=== PATIENT | female | born 1985 | race Caucasian/White ===

== ENCOUNTER → 2016-10-19 | Outpatient (CLI) | payer OTHER ==
--- NOTE | 2016-10-22 07:52 | XR ---
EXAMINATION TYPE: XR shoulder complete RT DATE OF EXAM: 10/19/2016 11:52 AM CLINICAL HISTORY: Right shoulder arm and neck pain. TECHNIQUE: Three views of the right shoulder are obtained. COMPARISON: None. FINDINGS: There is no acute fracture/dislocation evident in the right shoulder. The acromioclavicul ar and glenohumeral joint spaces appear within normal limits. The visualized ribs are intact and unr emarkable. IMPRESSION: Unremarkable study.
--- NOTE | 2016-10-22 07:53 | XR ---
EXAMINATION TYPE: XR cervical spine comp DATE OF EXAM: 10/19/2016 11:52 AM TECHNIQUE: Frontal, lateral, oblique, and open mouth view of the cervical spine are obtained. HISTORY: Cervical neck pain into right arm. COMPARISON: None FINDINGS: The cervical spine is visualized in its entirety from C1 thru the top of T1 level, it is s traightened in alignment without evidence of acute fracture or dislocation. The pre-vertebral soft t issue appears within normal limits. The C1-C2 articulation is within normal limits on the open mouth view. Vertebral body heights and disc space heights are maintained. The oblique images are within n ormal limits. Overlying soft tissue is unremarkable. IMPRESSION: Straightening of cervical spine otherwise unremarkable study.
== END | disposition home or self-care (01) ==
LOC: RADXRYALE 11:34
PROVIDERS: ATTEND Internal Medicine
DX: M54.2 Cervicalgia (principal); M25.511 Pain in right shoulder
CPT/HCPCS: 72050

== ENCOUNTER → 2017-05-07 | Outpatient (CLI) | payer OTHER ==
--- NOTE | 2017-05-07 14:06 | USB ---
Reason for exam: clinical finding. Indicated problem(s): pain in the right breast. US Breast RT Right breast ultrasound includes all four quadrants, the retroareolar region and axilla. Finding demonstrates no cystic or solid lesion seen. These results were verbally communicated with the patient and result sheet given to the patient on 05/07/17. ASSESSMENT: Negative, BI-RAD 1 RECOMMENDATION: Routine screening mammogram of both breasts at age 39. (unless clinical indication to start sooner) Manage on a clinical basis with regard to upper outer quadrant pain.
--- NOTE | 2017-05-08 11:18 | HP ---
CHIEF COMPLAINT: The patient is here for her routine gynecologic exam. HPI: This is a 31-year-old with an LMP of 04/13/17. She is status post tubal ligation. The patient states it has been about 2-3 years since her last pelvic exam. She was having shoulder pains on the right side during the past year and was seeing somebody for treatment since October of this year. She also went through physical therapy but she continues to have some shoulder problems. Within the last few months she developed some breast pain and she describes it as a dull pain up to about a 4 out of 10 on the pain scale. She thought she felt a very small pea sized lump in this area. She denies any nipple discharge. She is no longer breast feeding and has not been for about 1 1/2 years. The patient is otherwise without complaints. PAST MEDICAL HISTORY: Unremarkable. MEDICATIONS: None. ALLERGIES: No known drug allergies. PAST SURGICAL HISTORY: Tubes placed in the ears and adenoidectomy as a child. section x2. She did have a tubal sterilization with her second C- section. Laparoscopic cholecystectomy in 2014. PAST OB HISTORY: Two C-sections. PAST SHIFT MGR HISTORY: She has no history of STDs. SOCIAL HISTORY: She admits to smoking about a half a pack of cigarettes per day and has about 12 alcohol containing drinks per week. She denies drug use. 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 FAMILY HISTORY: Two grandparents had diabetes. REVIEW OF SYSTEMS: Weight has been stable. She denies respiratory, cardiac or GI problems. PHYSICAL EXAMINATION: Blood pressure 128/82, height 5 feet 3 inches, weight 140 pounds, temperature 98.5, pulse 68. This is a well-developed, well- nourished white female who is alert and oriented times three, in no acute distress. HEENT: Within normal limits. NECK: Supple without mass or thyromegaly. CHEST AND LUNGS: Clear to auscultation. HEART: Regular rate and rhythm. BREASTS: There is a slightly tender area in the right breast at approximately the 10 o'clock position, approximately 3-4 cm from the right nipple. There is fibrocystic types of changes throughout the entire breast and this is also similar to the left breast as well. There are some fibrous type changes at the area of the soreness. There is no palpable suspicious mass in this area. There is no erythema or unusual dimpling. There is no nipple discharge. There is no other abnormalities noted with the breast exam. AXILLARY: Negative for adenopathy. BACK: Negative for CVA tenderness. ABDOMEN: Soft, nontender without palpable masses. PELVIC: Normal external genitalia. Cervix and vagina appear normal. No unusual discharge. The uterus is mid position, non gravitus and nontender. There are no palpable adnexal masses or tenderness. RECTAL: Negative for mass or tenderness. EXTREMITIES; Nontender. IMPRESSION: 31-year-old female with right mastodynia during the past few months. There are no suspicious masses noted. Differential diagnosis will include breast cyst, underlying muscle soreness and less likely breast adenoma or other neoplasia. PLAN: 1. Pap smear was performed. 2. Self breast examination was discussed. 3. Right breast ultrasound will be performed at the area of the soreness. A marker was placed over this area. 4. We have had a long discussion regarding the breast soreness that she has had. She will try to decrease caffeine intake and to avoid chocolate intake as well. 5. She will also return in one year and p.r.n. MTDD
== END | disposition home or self-care (01) ==
LOC: WWCWWP 12:26
PROVIDERS: ATTEND Obstetrics & Gynecology
DX: N64.4 Mastodynia (principal)

== ENCOUNTER → 2023-04-24 | Outpatient (CLI) | payer SELFPAY ==
--- NOTE | 2023-04-24 10:08 | MM ---
Reason for Exam: Clinical finding. Baseline mammogram. Indicated Problems: Lump or thickening of the right side for 5 Day(s). Patient History: Menarche at age 11. First Full-Term at age 25. Patient has history of breast feeding. Patient used Hormonal Contraceptives for 10 years. Last menstrual period: 04/13/2023 Risk Values: Maia 5 year model risk: 0.5%. NCI Lifetime model risk: 11.2%. Prior Study Comparison: Patient's first Mammogram. Tissue Density: The breast tissue is heterogeneously dense. This may lower the sensitivity of mammography. Findings: Analyzed By CAD. There is a mass at 5.9 cm from the nipple measuring 25 x 24 mm on MLO view and 5.9 cm the nipple measuring 24 x 23 mm on CC view. No suspicious finding in the left breast. No septations or calcifications or distortion's. Overall Assessment: Incomplete: need additional imaging evaluation, BI-RAD 0 Management: Diagnostic Breast Ultrasound of the right breast. Results were given to the patient verbally at the time of exam. Patient should continue monthly self-breast exams. A clinical breast exam by your physician is recommended on an annual basis. This exam should not preclude additional follow-up of suspicious palpable abnormalities. Note on Maia scores and lifetime risk: 1. A Maia score greater than 3% is considered moderate risk. If this is the case, consider specialist referral to assess eligibility for a risk reducing agent. 2. If overall lifetime risk for the development of breast cancer is 20% or higher, the patient may qualify for future screening with alternating mammogram and breast MRI. Electronically signed and approved by: David Quesada DO
--- NOTE | 2023-04-24 10:48 | USB ---
Reason for Exam: Additional evaluation requested from abnormal screening. Patient History: Menarche at age 11. First Full-Term at age 25. Patient has history of breast feeding. Patient used Hormonal Contraceptives for 10 years. Risk Values: Maia 5 year model risk: 0.5%. NCI Lifetime model risk: 11.2%. Technique: Method: Targeted. Findings: The area of palpable concern of the right breast, the axilla of the right breast and the retroareolar of the right breast were scanned. Imaged: Ultrasound imaging of: Area of concern, retroareolar region and axilla. There is a cyst in the area of palpable abnormality which is anechoic with posterior acoustic enhancement measuring 2.8 x 1.7 x 2.4 cm. No internal color Doppler flow. There is septation present. This is located at 2:00 5 cm from the nipple. No evidence for organizing fluid collection or mass. Overall Assessment: Probably benign, BI-RAD 3 Management: Diagnostic Breast Ultrasound of the right breast in 6 months. Short-term follow-up in 6 months recommended. This lesion could be aspirated if there is clinical concern. A clinical breast exam by your physician is recommended on an annual basis and results should be correlated with mammographic findings. This exam should not preclude additional follow-up of suspicious palpable abnormalities. Results were given to the patient verbally at the time of exam. Electronically signed and approved by: David Quesada DO
== END | disposition home or self-care (01) ==
LOC: RADMAMWWP 09:26
PROVIDERS: ATTEND Internal Medicine
DX: N63.10 Unspecified lump in the right breast, unspecified quadrant (principal)
CPT/HCPCS: 77062; 77066